=== PATIENT | female | born 1990 | race Caucasian/White ===

== ENCOUNTER 2019-08-01 21:51 | Observation (INO) ==
[2019-08-01] MEDS ORDERED: OXYTOCIN/LR 20 UNIT/1,000 ML BAG IV PRN (22:09)
[2019-08-01] MEDS ORDERED: ONDANSETRON 4 MG/2 ML VIAL IV PRN (22:09)
[2019-08-01] MEDS ORDERED: BUTORPHANOL 2 MG/ML VIAL IV PRN (22:09)
[2019-08-01] MEDS ORDERED: LACTATED RINGERS 1,000 ML IV SCH (22:30)
[2019-08-01 22:35] LABS: Basophils % 0.3 % (0.0-0.8); Eosinophils # 0.2 10*3/uL (0.0-0.87); Eosinophils % 1.7 % (0.00-10.9); Hematocrit 37.6 VOL% (35.7-47.0); Hemoglobin 12.5 GM/DL (12.0-16.0); Immature Granulocytes % 0.6 %; Immature Granulocytes Absolute 0.05 #; Lymphocytes # 1.9 10*3/uL (1.4-4.0); Lymphocytes % 20.6 % (21.3-54.2); Mean Corpuscular HGB Conc 33.2 GM/DL (32-36); Mean Corpuscular Volume 94.5 FL (87-102); Mean Platelet Volume 10.6 FL (9.6-12.0); Monocytes % 8.2 % (1.7-12.7); Neutrophils % 68.6 % (38.7-73.9); Platelet Count 223 T/CUMM (130-400); Red Blood Count 3.98 MC/CUMM (3.8-5.5); Red Cell Distribution Width 13.7 % (9.3-17.3)
[2019-08-01 22:45] LABS: Alanine Aminotransferase 16 U/L (13-56); Albumin 2.7 G/DL (3.4-5.0); Alkaline Phosphatase 202 U/L (45-117); Aspartate Amino Transferase 17 U/L (0-37); Bilirubin,Total < 0.39 MG/DL (0.2-1.0); Blood Urea Nitrogen 9 MG/DL (7-18); Calcium 9.1 MG/DL (8.5-10.1); Estimated Glom Filtration Rate 89 ML/MIN; Glucose 88 MG/DL (74-106); Osmolality,Calculated 276.4 MOS/KG (273-304); Total Protein 6.9 G/DL (6.4-8.3)
[2019-08-01 23:29] LABS: Amorphous Crystals,Urine Occasional /HPF (Few); Apearance,Urine CLOUDY (Clear); Bacteria,Urine Few /HPF (Few); Bilirubin,Urine Negative (Negative); Blood, Urine Negative (Negative); Glucose,Urine (UA) Negative (Negative); Ketones,Urine Negative (Negative); Mucus,Urine Occasional /LPF (Occasional); Nitrite,Urine Negative (Negative); Protein,Urine Negative; Squamous Epithelial Cell,Urine Few /HPF (0-10); Urine Color Yellow (Yellow); Urine Specific Gravity 1.021 (1.001-1.035); Urine Urobilinogen < 2.0 EU/DL (0.2-1.0); WBC,Urine 2 /HPF (0-6)
== END 2019-08-03 16:35 | disposition home or self-care (01) ==
LOC: N.LDOUT 21:51 → N.LD 21:58 → INTOOBSV 22:09 → N.LD 22:09
PROVIDERS: ADMIT Specialist; ATTEND Specialist

== ENCOUNTER 2019-08-08 19:28 | Inpatient (IN) ==
[2019-08-08] MEDS ORDERED: LACTATED RINGERS 500 ML IV PRN (19:38)
[2019-08-08] MEDS ORDERED: BUTORPHANOL 2 MG/ML VIAL IV PRN (19:38)
[2019-08-08 20:01] LABS: Basophils % 0.2 % (0.0-0.8); Eosinophils # 0.2 10*3/uL (0.0-0.87); Eosinophils % 1.7 % (0.00-10.9); Hemoglobin 12.2 GM/DL (12.0-16.0); Immature Granulocytes % 0.3 %; Immature Granulocytes Absolute 0.03 #; Lymphocytes # 1.8 10*3/uL (1.4-4.0); Mean Corpuscular HGB Conc 33.9 GM/DL (32-36); Mean Corpuscular Volume 93.3 FL (87-102); Mean Platelet Volume 10.4 FL (9.6-12.0); Monocytes % 7.8 % (1.7-12.7); Platelet Count 234 T/CUMM (130-400); Red Blood Count 3.86 MC/CUMM (3.8-5.5); Red Cell Distribution Width 13.8 % (9.3-17.3); White Blood Count 9.4 T/CUMM (4-12)
[2019-08-08 20:24] LABS: Alanine Aminotransferase 19 U/L (13-56); Albumin 2.6 G/DL (3.4-5.0); Alkaline Phosphatase 201 U/L (45-117); Aspartate Amino Transferase 16 U/L (0-37); Bilirubin,Total < 0.39 MG/DL (0.2-1.0); Blood Urea Nitrogen 10 MG/DL (7-18); Calcium 8.9 MG/DL (8.5-10.1); Estimated Glom Filtration Rate 128 ML/MIN; Glucose 88 MG/DL (74-106); Osmolality,Calculated 272.7 MOS/KG (273-304); Total Protein 6.7 G/DL (6.4-8.3)
[2019-08-09] MEDS: LACTATED RINGERS 1,000 ML IV SCH ×2 (00:45→10:30)
[2019-08-09] MEDS ORDERED: OXYTOCIN/LR 20 UNIT/1,000 ML BAG IV SCH (07:00)
[2019-08-09] MEDS: ONDANSETRON 4 MG/2 ML VIAL IV PRN ×2 (09:41→17:50)
[2019-08-09] MEDS ORDERED: LACTATED RINGERS 1,000 ML IV ONE (10:23)
[2019-08-09] MEDS ORDERED: ePHEDrine 50 MG/ML AMP IV PRN (10:23)
[2019-08-09] MEDS ORDERED: FAMOTIDINE 20 MG/2 ML VIAL IV ONE (10:23)
[2019-08-09] MEDS ORDERED: CITRIC ACID/SODIUM CITRATE 30 ML UDCUP PO ONE (10:23)
[2019-08-09] MEDS ORDERED: NALOXONE 0.4 MG/ML VIAL IV PRN (10:24)
[2019-08-09] MEDS ORDERED: diphenhydrAMINE 50 MG/1 ML VIAL IV PRN ×2 (10:24)
[2019-08-09] MEDS ORDERED: hydrOXYzine HCL 25 MG/1 ML VIAL IM PRN (10:24)
[2019-08-09] MEDS ORDERED: PROMETHAZINE 25 MG/1 ML VIAL IM ONE (10:24)
[2019-08-09] MEDS ORDERED: LACTATED RINGERS 250 ML IV PRN (10:24)
[2019-08-09] MEDS: fentaNYL 2 MCG/ROPIV 0.2% EPID 100 ML EPIDURAL SCH ×2 (11:02→17:06)
[2019-08-09 11:59] LABS: Apearance,Urine CLEAR (Clear); Bilirubin,Urine Negative (Negative); Blood, Urine Moderate mg/dL (Negative); Glucose,Urine (UA) Negative (Negative); Ketones,Urine 20 mg/dL (Negative); Mucus,Urine Occasional /LPF (Occasional); Nitrite,Urine Negative (Negative); Protein,Urine Negative; RBC,Urine 36 /HPF (0-4); Squamous Epithelial Cell,Urine Occasional /HPF (0-10); Urine Color Yellow (Yellow); Urine Specific Gravity 1.015 (1.001-1.035); Urine Urobilinogen < 2.0 EU/DL (0.2-1.0); WBC,Urine <1 /HPF (0-6)
[2019-08-09] MEDS ORDERED: TRANEXAMIC ACID 1,000 MG/10 ML VIAL ONE (16:52)
[2019-08-09] MEDS ORDERED: miSOPROStoL 200 MCG TABLET ONE ×2 (16:52→20:24)
[2019-08-09] MEDS ORDERED: CARBOPROST TROMETHAMINE 250 MCG/ML AMP IM ONE ×2 (16:53→20:25)
[2019-08-09] MEDS ORDERED: METHYLERGONOVINE 0.2 MG/1 ML AMP ONE ×3 (16:53→21:18)
[2019-08-09] MEDS ORDERED: PHENYLEPHRINE 1 MG/10 ML SYRINGE IV ONE (20:36)
[2019-08-09] MEDS ORDERED: MORPHINE 10 MG/10 ML VIAL ONE (20:37)
[2019-08-09] MEDS ORDERED: LIDOCAINE MPF 2% /EPI 20 ML VIAL ONE (20:37)
[2019-08-09] MEDS ORDERED: ceFAZolin 2,000 MG in PREMIX 1 EACH IV ONE (20:47)
[2019-08-09] MEDS ORDERED: METHYLERGONOVINE 0.2 MG/1 ML AMP IM PRN (21:10)
[2019-08-09 21:30] LABS: Cord Venous Blood HCO3 22.9 MMOL/L; Cord Venous Blood PCO2 46.4 MMHG
[2019-08-09 21:37] LABS: Cord Venous Blood PO2 18.6
[2019-08-09] MEDS ORDERED: WITCH HAZEL PADS 100/JAR TOP PRN (21:39)
[2019-08-09] MEDS ORDERED: ACETAMINOPHEN 325 MG TABLET PO PRN (21:39)
[2019-08-09] MEDS ORDERED: MEASLES/MUMPS/RUBELLA VACCINE 0.5 ML VIAL SUBCUT ONE (21:39)
[2019-08-09] MEDS ORDERED: BISACODYL 10 MG SUPP RECTAL PRN (21:39)
[2019-08-09] MEDS ORDERED: RHO(D) IMMUNE GLOBULIN 300 MCG SYRINGE IM ONE (21:39)
[2019-08-09] MEDS ORDERED: DIPH/TET/ACEL PERT BOOSTER VACCINE 0.5 ML VIAL IM ONE (21:39)
[2019-08-09] MEDS ORDERED: HYDROCORTISONE 2.5% RECTAL CREAM 30 GM TUBE TOP PRN (21:39)
[2019-08-09] MEDS ORDERED: LANOLIN 50% CREAM 0.3 OZ TUBE TOP PRN (21:39)
[2019-08-09] MEDS ORDERED: OXYTOCIN/LR 20 UNIT/1,000 ML BAG IV ONE (21:39)
[2019-08-09] MEDS ORDERED: oxyCODONE/ACETAMINOPHEN 5-325 MG TABLET PO PRN ×2 (21:39)
[2019-08-09] MEDS ORDERED: IBUPROFEN 800 MG TABLET PO PRN (21:39)
[2019-08-09] MEDS ORDERED: ONDANSETRON 4 MG/2 ML VIAL IV PRN (21:39)
[2019-08-09] MEDS ORDERED: BENZOCAINE 20%/MENTHOL 0.5% SPRAY 56 GM CAN TOP PRN (21:39)
[2019-08-09] MEDS ORDERED: MIDAZOLAM 2 MG/2 ML VIAL ONE (21:52)
[2019-08-09] MEDS: KETOROLAC 30 MG/1 ML VIAL IV SCH (22:48)
[2019-08-09] MEDS: ACETAMINOPHEN 500 MG TABLET PO SCH (22:48)
[2019-08-10] MEDS: ACETAMINOPHEN 500 MG TABLET PO SCH ×3 (04:41→16:30)
[2019-08-10] MEDS: ceFAZolin 1,000 MG in SYRINGE 1 EACH IV SCH ×2 (04:41→13:35)
[2019-08-10] MEDS: KETOROLAC 30 MG/1 ML VIAL IV SCH ×3 (04:46→16:31)
[2019-08-10 05:49] LABS: Basophils % 0.2 % (0.0-0.8); Hematocrit 31.3 VOL% (35.7-47.0); Hemoglobin 10.6 GM/DL (12.0-16.0); Immature Granulocytes % 0.6 %; Immature Granulocytes Absolute 0.11 #; Lymphocytes # 1.1 10*3/uL (1.4-4.0); Mean Corpuscular HGB Conc 33.9 GM/DL (32-36); Mean Corpuscular Volume 93.7 FL (87-102); Mean Platelet Volume 10.6 FL (9.6-12.0); Neutrophils % 86.2 % (38.7-73.9); Platelet Count 204 T/CUMM (130-400); Red Blood Count 3.34 MC/CUMM (3.8-5.5); Red Cell Distribution Width 13.9 % (9.3-17.3); White Blood Count 17.6 T/CUMM (4-12)
[2019-08-10] MEDS: DOCUSATE SODIUM 100 MG CAPSULE PO SCH ×2 (09:20→21:51)
[2019-08-10] MEDS ORDERED: MAGNESIUM HYDROXIDE SUSP 30 ML UDCUP PO PRN (21:40)
[2019-08-11] MEDS: KETOROLAC 30 MG/1 ML VIAL IV SCH (00:54)
[2019-08-11 07:29] VITALS: BP 110/67
[2019-08-11] MEDS: DOCUSATE SODIUM 100 MG CAPSULE PO SCH (09:52)
== END 2019-08-11 12:30 | disposition home or self-care (01) | DRG 788 ==
LOC: N.LD 19:28 → N.OB 08-10 00:44
PROVIDERS: ADMIT Specialist; ATTEND Specialist
PROC: LDCSECT (ICD-10-PCS; 2019-08-09 20:30)

== ENCOUNTER 2021-05-20 13:50 | Inpatient (IN) ==
[2021-05-20] MEDS: LACTATED RINGERS 1,000 ML IV SCH (14:15)
[2021-05-20] MEDS ORDERED: MEPERIDINE 50 MG/1 ML VIAL IM PRN (14:19)
[2021-05-20] MEDS ORDERED: ONDANSETRON 4 MG/2 ML VIAL IV PRN ×2 (14:19→19:52)
[2021-05-20] MEDS ORDERED: BUTORPHANOL 2 MG/ML VIAL IV PRN (14:19)
[2021-05-20] MEDS ORDERED: OXYTOCIN/LR 20 UNIT/1,000 ML BAG IV SCH (14:30)
[2021-05-20 14:40] LABS: Basophils % 0.2 % (0.0-0.8); Eosinophils % 0.2 % (0.00-10.9); Hemoglobin 8.9 GM/DL (12.0-16.0); Immature Granulocytes % 0.7 %; Immature Granulocytes Absolute 0.08 #; Lymphocytes % 9.2 % (21.3-54.2); Mean Corpuscular HGB Conc 30.7 GM/DL (32-36); Mean Corpuscular Volume 78.8 FL (87-102); Mean Platelet Volume 10.2 FL (9.6-12.0); Monocytes % 6.1 % (1.7-12.7); NRBC # 0.02 10*3/uL; Neutrophils % 83.6 % (38.7-73.9); Platelet Count 277 T/CUMM (130-400); Red Blood Count 3.68 MC/CUMM (3.8-5.5); White Blood Count 10.9 T/CUMM (4-12)
[2021-05-20] MEDS ORDERED: MEPERIDINE 50 MG/1 ML VIAL IV PRN ×2 (15:00→16:00)
[2021-05-20 15:08] LABS: Albumin 2.8 G/DL (3.4-5.0); Bilirubin,Total 0.6 MG/DL (0.20-1.00); Calcium 8.6 MG/DL (8.5-10.1); Potassium 3.6 MMOL/L (3.5-5.1)
[2021-05-20] MEDS ORDERED: OXYTOCIN/LR 20 UNIT/1,000 ML BAG IV ONE ×2 (16:14→19:52)
[2021-05-20] MEDS ORDERED: METHYLERGONOVINE 0.2 MG/1 ML AMP ONE (16:14)
[2021-05-20] MEDS ORDERED: miSOPROStoL 200 MCG TABLET ONE (16:14)
[2021-05-20] MEDS ORDERED: CARBOPROST TROMETHAMINE 250 MCG/ML AMP IM ONE (16:14)
[2021-05-20] MEDS ORDERED: LIDOCAINE 1% 50 ML VIAL ONE (16:51)
[2021-05-20 19:32] LABS: Cord Arterial Blood HCO3 19.4 MMOL/L
[2021-05-20 19:34] LABS: Cord Venous Blood HCO3 19.1 MMOL/L; Cord Venous Blood PCO2 41.9 MMHG; Cord Venous Blood PO2 21.3
[2021-05-20] MEDS ORDERED: oxyCODONE/ACETAMINOPHEN 5-325 MG TABLET PO PRN ×2 (19:52)
[2021-05-20] MEDS ORDERED: ACETAMINOPHEN 325 MG TABLET PO PRN (19:52)
[2021-05-20] MEDS ORDERED: WITCH HAZEL PADS 100/JAR TOP PRN (19:52)
[2021-05-20] MEDS ORDERED: RHO(D) IMMUNE GLOBULIN 300 MCG SYRINGE IM ONE (19:52)
[2021-05-20] MEDS ORDERED: LANOLIN 50% CREAM 0.3 OZ TUBE TOP PRN (19:52)
[2021-05-20] MEDS ORDERED: BENZOCAINE 20%/MENTHOL 0.5% SPRAY 56 GM CAN TOP PRN (19:52)
[2021-05-20] MEDS ORDERED: MEASLES/MUMPS/RUBELLA VACCINE 0.5 ML VIAL SUBCUT ONE (19:52)
[2021-05-20] MEDS ORDERED: DIPH/TET/ACEL PERT BOOSTER VACCINE 0.5 ML VIAL IM ONE (19:52)
[2021-05-20] MEDS ORDERED: BISACODYL 10 MG SUPP RECTAL PRN (19:52)
[2021-05-20] MEDS ORDERED: HYDROCORTISONE 2.5% RECTAL CREAM 30 GM TUBE TOP PRN (19:52)
[2021-05-20] MEDS: DOCUSATE SODIUM 100 MG CAPSULE PO SCH (22:02)
[2021-05-21] MEDS: IBUPROFEN 800 MG TABLET PO PRN ×3 (01:26→21:23)
[2021-05-21] MEDS: LACTATED RINGERS 1,000 ML IV SCH (05:37)
[2021-05-21 05:46] LABS: Basophils % 0.2 % (0.0-0.8); Eosinophils % 0.1 % (0.00-10.9); Hematocrit 26.4 VOL% (35.7-47.0); Hemoglobin 8.3 GM/DL (12.0-16.0); Immature Granulocytes % 0.7 %; Immature Granulocytes Absolute 0.12 #; Lymphocytes # 1.3 10*3/uL (1.4-4.0); Lymphocytes % 7.8 % (21.3-54.2); Mean Corpuscular HGB Conc 31.4 GM/DL (32-36); Mean Platelet Volume 10.2 FL (9.6-12.0); Monocytes % 8.3 % (1.7-12.7); NRBC # 0.03 10*3/uL; Neutrophils % 82.9 % (38.7-73.9); Platelet Count 250 T/CUMM (130-400); Red Blood Count 3.34 MC/CUMM (3.8-5.5); White Blood Count 16.6 T/CUMM (4-12)
[2021-05-21] MEDS: DOCUSATE SODIUM 100 MG CAPSULE PO SCH ×2 (08:53→21:23)
[2021-05-21] MEDS: FERROUS SULFATE 325 MG TABLET PO SCH ×2 (09:27→21:23)
[2021-05-22] MEDS: IBUPROFEN 800 MG TABLET PO PRN ×2 (05:47→11:00)
[2021-05-22 09:32] VITALS: BP 109/72
[2021-05-22] MEDS: FERROUS SULFATE 325 MG TABLET PO SCH (11:00)
[2021-05-22] MEDS: DOCUSATE SODIUM 100 MG CAPSULE PO SCH (11:00)
== END 2021-05-22 14:00 | disposition home or self-care (01) | DRG 560 ==
LOC: N.LDOUT 13:50 → N.LD 13:53 → N.OB 05-21 08:59
PROVIDERS: ADMIT Obstetrics & Gynecology; ATTEND Obstetrics & Gynecology